=== PATIENT | male | born 1965 | race Caucasian/White ===

== ENCOUNTER 2016-06-02 09:50 | Emergency (ER) | payer BC, MEDICAID ==
[~2016-06-02] VITALS: Ht 172.7 cm; Wt 77.1 kg
[~2016-06-02 09:50] MED LIST: ATEN25TA PO; OMEP20CA10 PO
[2016-06-02 09:53] VITALS: BP 138/64
[2016-06-02] MEDS ORDERED: IBUPROFEN 600 MG TABLET PO ONE ×2 (10:09→10:30)
[2016-06-02] MEDS ORDERED: LIDOCAINE HCL/PF 1% 30 ML VIAL TP ONE (10:30)
== END 2016-06-02 11:09 | disposition home or self-care (01) ==
LOC: ER 09:52
DX: L02.512 Cutaneous abscess of left hand (principal); I10 Essential (primary) hypertension; B19.20 Unspecified viral hepatitis C without hepatic coma; F17.200 Nicotine dependence, unspecified, uncomplicated
CPT/HCPCS: 10060; 99283; A4606; A6402; A6403; J3490 ×2; Z7610

== ENCOUNTER 2016-07-24 04:02 | Emergency (ER) | payer MEDICAID ==
[~2016-07-24] VITALS: Ht 172.7 cm; Wt 77.1 kg
--- NOTE | 2016-07-24 04:20 | NUR ---
To bed 7 a 51 yo male bibself with c/o neck pain (throbbing, sharp) radiating to back of head at 7/10 since 2100 yesterday. Patient is aaox4, ambulatory. 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 Denies n/v. Able to move neck all rom. VSS. Initiated comfort measures. Awaiting for er md emerson.
[2016-07-24] MEDS ORDERED: CARISOPRODOL 350 MG TABLET ONE (04:45)
[2016-07-24] MEDS ORDERED: DEXAMETHASONE SOD PHOSPHATE 10 MG/ML VIAL ONE ×2 (04:46→05:01)
[2016-07-24] MEDS ORDERED: HYDROMORPHONE 1 MG/1 ML DISP.SYRIN ONE (04:47)
[2016-07-24] MEDS ORDERED: CARISOPRODOL 350 MG TABLET PO ONE (05:00)
[2016-07-24] MEDS ORDERED: DEXAMETHASONE SOD PHOSPHATE 4 MG/ML VIAL IM ONE (05:00)
[2016-07-24] MEDS ORDERED: HYDROMORPHONE 1 MG/1 ML DISP.SYRIN IM ONE (05:00)
--- NOTE | 2016-07-24 05:12 | NUR ---
Patient refused soma po and dilaudid IV as he will be driving home and nobody is able to come and pick him up.
--- NOTE | 2016-07-24 05:18 | NUR ---
Patient discharged to home in stable condition. Written and verbal after care instructions given. Patient verbalizes understanding of instruction. Patient is ambulatory with steady gait. No further complaints.
[2016-07-24 05:20] VITALS: BP 148/89
== END 2016-07-24 05:18 | disposition home or self-care (01) ==
LOC: ER 04:02
DX: M54.12 Radiculopathy, cervical region (principal); M62.838 Other muscle spasm; I10 Essential (primary) hypertension; B19.20 Unspecified viral hepatitis C without hepatic coma; F17.200 Nicotine dependence, unspecified, uncomplicated
CPT/HCPCS: 96372; 99283; A4606; J1100 ×2; J1170; Z7610

== ENCOUNTER 2016-10-02 16:10 | Emergency (ER) | payer MEDICAID ==
[~2016-10-02] VITALS: Ht 175.3 cm; Wt 77.1 kg
--- NOTE | 2016-10-02 16:19 | NUR ---
HEADACHE X 2 DAYS, WORSENING TODAY AWAITING MD ORDER
[2016-10-02] MEDS ORDERED: MECLIZINE HCL 25 MG TABLET ONE (16:52)
[2016-10-02] MEDS ORDERED: HYDROCODONE/APAP 10/325MG 1 EA TABLET ONE (16:53)
[2016-10-02] MEDS ORDERED: ONDANSETRON 4 MG TAB.RAPDIS ONE (16:53)
[2016-10-02] MEDS: HYDROCODONE/APAP 10/325MG 1 EA TABLET PO ONE ×2 (16:57→17:07)
[2016-10-02] MEDS ORDERED: MECLIZINE HCL 25 MG TABLET PO ONE (17:00)
[2016-10-02] MEDS ORDERED: ONDANSETRON 4 MG TAB.RAPDIS SL ONE (17:00)
--- NOTE | 2016-10-02 17:07 | NUR ---
PT REFUSED [facility]CO DR AGUSTIN AWARE PER PT HEADACHE BETTER
--- NOTE | 2016-10-02 18:18 | NUR ---
Patient discharged to home in stable condition. Written and verbal after care instructions given. Patient verbalizes understanding of instruction.
[2016-10-02 18:19] VITALS: BP 130/83
== END 2016-10-02 18:19 | disposition home or self-care (01) ==
LOC: ER 16:12
DX: R51 Headache (principal); R42 Dizziness and giddiness; I10 Essential (primary) hypertension; B19.20 Unspecified viral hepatitis C without hepatic coma; K29.70 Gastritis, unspecified, without bleeding; F17.200 Nicotine dependence, unspecified, uncomplicated
CPT/HCPCS: 70450-TC; A4606; J8597; Q0162; Z7610

== ENCOUNTER 2017-03-05 19:21 | Emergency (ER) | payer MEDICAID ==
[~2017-03-05] VITALS: Ht 172.7 cm; Wt 77.1 kg
--- NOTE | 2017-03-05 19:30 | NUR ---
TO BED 1 AMBULATORY C/O WORSENING RLQ ABDOMINAL PAIN WITH NAUSEA X1 WEEK. PT AAOX4 NO ACUTE DISTRESS NOTED, RESP EVEN AND UNLABORED. URINE SAMPLE COLLECTED. PENDING ER MD STOREY.
--- NOTE | 2017-03-05 19:40 | NUR ---
EDMOND SWEET AT BEDSIDE TO RALEIGH JERNIGAN.
[2017-03-05 19:51] LABS: APPEARANCE,URINE Clear (CLEAR); BILIRUBIN,URINE Negative (NEGATIVE); BLOOD, URINE Trace-intact Ery/uL (NEGATIVE); COLOR,URINE Yellow (YELLOW); KETONES,URINE Negative (NEGATIVE); LEUKOCYTE ESTERASE ,URINE Negative (NEGATIVE); NITRITE, URINE Negative (NEGATIVE); PH,URINE 5.5 (5.0-8.0); PROTEIN,URINE Negative (NEGATIVE); UGLUCOSE Negative (NEGATIVE); UROBILINOGEN,URINE 0.2 EU/dL (0.2)
[2017-03-05 19:59] LABS: BACTERIA,URINE Rare /HPF (None Seen); RBC,URINE 2-3/HPF /HPF (0-2); SQUAMOUS EPITHELIAL CELL,UR Rare /HPF (None Seen); WBC,URINE 1-2/HPF /HPF (0-3)
[2017-03-05 20:00] LABS: MUCUS,URINE Few /LPF (None Seen); URINE AMORPHOUS URATE Few /HPF (None Seen)
[2017-03-05] MEDS ORDERED: ONDANSETRON HCL/PF 4 MG/2 ML VIAL ONE (20:00)
[2017-03-05] MEDS ORDERED: IV NS 0.9% 1,000 ML BAG IV ONE (20:00)
[2017-03-05] MEDS ORDERED: ONDANSETRON HCL/PF 4 MG/2 ML VIAL IVP ONE (20:00)
[2017-03-05 20:03] LABS: BASOPHILS # (AUTO) 0.1 /CMM (0.0-0.2); BASOPHILS % (AUTO) 0.6 % (0.0-2.0); EOSINOPHILS # (AUTO) 0.1 /CMM (0.0-0.7); EOSINOPHILS % (AUTO) 1.6 % (0.0-6.0); HEMATOCRIT 47 % (39-51); HEMOGLOBIN 15.7 g/dL (13.5-17.5); LYMPHOCYTES # (AUTO) 2.9 /CMM (0.8-4.8); LYMPHOCYTES % (AUTO) 31.8 % (20.0-44.0); MEAN CORPUSCULAR HEMOGLOBIN 30 PG (26.0-33.0); MEAN CORPUSCULAR HGB CONC 34 g/dl (31.0-36.0); MEAN CORPUSCULAR VOLUME 88 fL (80-96); MONOCYTES # (AUTO) 0.6 /CMM (0.1-1.30); MONOCYTES % (AUTO) 6.2 % (2.0-12.0); NEUTROPHILS # (AUTO) 5.3 /CMM (1.8-8.9); NEUTROPHILS % (AUTO) 59.8 % (43.0-81.0); PLATELET COUNT (AUTO) 258 /CMM (150-450); RDW COEFFICIENT OF VARIATION 12.5 (11.5-15.0)
[2017-03-05 20:12] LABS: CALCIUM, SERUM 9.7 mg/dL (8.5-10.1); POTASSIUM 4.1 mmol/L (3.5-5.1)
[2017-03-05 20:17] LABS: INR 0.95 (0.87-1.13); PROTHROMBIN TIME 9.9 SECS (9.5-12.7)
[2017-03-05 20:18] LABS: ALBUMIN 4.5 g/dL (3.4-5.0); BILIRUBIN,DIRECT 0.1 mg/dL (0.0-0.2); BILIRUBIN,TOTAL 0.8 mg/dL (0.2-1.0); TOTAL PROTEIN, SERUM 8.2 g/dL (6.4-8.2)
--- NOTE | 2017-03-05 21:44 | NUR ---
IV removed. Catheter intact and site benign. Pressure and 4x4 applied to site. No bleeding noted. Patient discharged to home in stable condition. Written and verbal after care instructions given. Patient verbalizes understanding of instruction. ambulatory with a steady gait
[2017-03-05 21:45] VITALS: BP 153/79
== END 2017-03-05 21:47 | disposition home or self-care (01) ==
LOC: ER 19:22
DX: K57.32 Diverticulitis of large intestine without perforation or abscess without bleeding (principal); I10 Essential (primary) hypertension; F17.200 Nicotine dependence, unspecified, uncomplicated; Z86.19 Personal history of other infectious and parasitic diseases
CPT/HCPCS: 36415; 74176; 80048; 80076; 81001; 83690; 85025; 85730; 96361; 96374; 99285; 99406; A4606; J2405; J7030; Z7610; 81000-TC

== ENCOUNTER 2017-07-27 11:14 | Emergency (ER) | payer MEDICAID ==
[~2017-07-27] VITALS: Ht 172.7 cm; Wt 77.6 kg
--- NOTE | 2017-07-27 11:20 | NUR ---
PATIENT TO ED DT DIFFICULTY BREATHING AT NIGHT WHEN LAYING DOWN, PATIENT IN NO DISTRESS. RESPIRAITON EVEN AND UNLABORED. SKIN IS WARM TO TOUCH AND NON DIAPHORETIC. PT IS AFEBRILE. VSS.
[2017-07-27] MEDS ORDERED: ALPR0.25 PO (11:34)
[2017-07-27 11:40] LABS: BASOPHILS # (AUTO) 0.1 /CMM (0.0-0.2); BASOPHILS % (AUTO) 0.9 % (0.0-2.0); EOSINOPHILS % (AUTO) 1.7 % (0.0-6.0); HEMATOCRIT 48 % (39-51); HEMOGLOBIN 16.3 g/dL (13.5-17.5); LYMPHOCYTES # (AUTO) 2.3 /CMM (0.8-4.8); LYMPHOCYTES % (AUTO) 31.8 % (20.0-44.0); MEAN CORPUSCULAR HGB CONC 34 g/dl (31.0-36.0); MEAN CORPUSCULAR VOLUME 87 fL (80-96); MONOCYTES # (AUTO) 0.4 /CMM (0.1-1.30); MONOCYTES % (AUTO) 5.8 % (2.0-12.0); NEUTROPHILS # (AUTO) 4.2 /CMM (1.8-8.9); NEUTROPHILS % (AUTO) 59.8 % (43.0-81.0); PLATELET COUNT (AUTO) 273 /CMM (150-450); RDW COEFFICIENT OF VARIATION 12.7 (11.5-15.0); RED BLOOD CELL COUNT(AUTO) 5.52 MIL/uL (4.5-6.0); WHITE BLOOD COUNT (AUTO) 7.1 K/uL (4.3-11.0)
[2017-07-27 11:51] LABS: CALCIUM, SERUM 9.1 mg/dL (8.5-10.1); CARBON DIOXIDE 31 mmol/L (21-32); CHLORIDE 102 mmol/L (98-107); CREATININE 1.1 mg/dL (0.6-1.3); GLUCOSE 138 mg/dL (74-106); SODIUM SERUM 139 mmol/L (136-145); UREA NITROGEN, BLOOD 15 mg/dL (7-18)
[2017-07-27 11:55] LABS: INR 0.93 (0.85-1.15)
[2017-07-27 11:58] LABS: TROPONIN I < 0.017 ng/mL (0.00-0.056)
[2017-07-27 12:03] LABS: B-TYPE NATRIURETIC PEPTIDE 22 PG/ML (0-125)
[2017-07-27 12:34] VITALS: BP 134/80
--- NOTE | 2017-07-27 12:35 | NUR ---
Patient discharged to home in stable condition. Written and verbal after care instructions given. Patient verbalizes understanding of instruction.
== END 2017-07-27 12:36 | disposition home or self-care (01) ==
LOC: ER 11:16
DX: R00.2 Palpitations (principal); F41.9 Anxiety disorder, unspecified; I10 Essential (primary) hypertension; R06.02 Shortness of breath; F17.200 Nicotine dependence, unspecified, uncomplicated; Z86.19 Personal history of other infectious and parasitic diseases
CPT/HCPCS: 36415; 71045-TC; 80048-TC; 83880; 84484-TC; 85025-TC; 85730-TC; A4606; Z7610

== ENCOUNTER 2017-09-14 09:03 | Emergency (ER) | payer MEDICAID ==
[~2017-09-14] VITALS: Ht 172.7 cm; Wt 77.1 kg
[~2017-09-14 09:03] MED LIST changes: +ALPR0.25 PO
[2017-09-14 09:05] VITALS: BP 141/89
== END 2017-09-14 09:59 | disposition home or self-care (01) ==
LOC: ER 09:05
DX: J03.90 Acute tonsillitis, unspecified (principal); I10 Essential (primary) hypertension; F17.200 Nicotine dependence, unspecified, uncomplicated; Z86.19 Personal history of other infectious and parasitic diseases
CPT/HCPCS: 99283; A4606; Z7610

== ENCOUNTER → 2017-11-21 | Emergency (ER) | payer MEDICAID ==
[~2017-11-21] VITALS: Ht 172.7 cm; Wt 74.8 kg
[~2017-11-21] MED LIST changes: +IV NS 0.9% 1,000 ML BAG IV ONE; +KETOROLAC TROMETHAMINE INJ 30 MG/ML VIAL IV ONE; +KETOROLAC TROMETHAMINE INJ 30 MG/ML VIAL ONE; +METOCLOPRAMIDE HCL 10 MG/2 ML VIAL IV ONE; +METOCLOPRAMIDE HCL 10 MG/2 ML VIAL ONE; +diphenhydrAMINE HCL 50 MG/ML VIAL IV ONE; +diphenhydrAMINE HCL 50 MG/ML VIAL ONE
--- NOTE | 2017-11-21 19:45 | NUR ---
TO BED 12 AMBULATORY C/O HEADACHE X 3 DAYS, WORSE TODAY, PT TOOK IBUPROFEN WITHOUT RELIEF. PT AAOX4 NO ACUTE DISTRESS NOTED, RESP EVEN AND UNLABORED. PENDING ER MD STOREY.
--- NOTE | 2017-11-21 20:25 | NUR ---
ER MD AT BEDSIDE TO EVAL PT WITH ORDERS RECEIVED. WILL CARRY OUT ORDERS.
--- NOTE | 2017-11-21 21:10 | NUR ---
RN AT BEDSIDE TO MEDICATE PT.
[2017-11-21 21:16] LABS: BASOPHILS # (AUTO) 0.1 /CMM (0.0-0.2); BASOPHILS % (AUTO) 0.8 % (0.0-2.0); HEMATOCRIT 47 % (39-51); HEMOGLOBIN 15.6 g/dL (13.5-17.5); LYMPHOCYTES # (AUTO) 2.3 /CMM (0.8-4.8); MEAN CORPUSCULAR HEMOGLOBIN 29 PG (26.0-33.0); MEAN CORPUSCULAR HGB CONC 33 g/dl (31.0-36.0); MEAN CORPUSCULAR VOLUME 89 fL (80-96); MONOCYTES # (AUTO) 0.4 /CMM (0.1-1.30); MONOCYTES % (AUTO) 5.1 % (2.0-12.0); NEUTROPHILS # (AUTO) 4.4 /CMM (1.8-8.9); NEUTROPHILS % (AUTO) 61.1 % (43.0-81.0); PLATELET COUNT (AUTO) 231 /CMM (150-450); RDW COEFFICIENT OF VARIATION 12.8 (11.5-15.0); RED BLOOD CELL COUNT(AUTO) 5.31 MIL/uL (4.5-6.0); WHITE BLOOD COUNT (AUTO) 7.3 K/uL (4.3-11.0)
[2017-11-21 21:24] LABS: CALCIUM, SERUM 9.5 mg/dL (8.5-10.1)
--- NOTE | 2017-11-21 21:32 | NUR ---
PT TRANSPORTED TO RADIOLOGY FOR CT HEAD.
--- NOTE | 2017-11-21 21:44 | NUR ---
PT BACK FROM RADIOLOGY. PENDING CT HEAD RESULT.
[2017-11-21 22:48] VITALS: BP 163/90
--- NOTE | 2017-11-21 22:48 | NUR ---
IV removed. Catheter intact and site benign. Pressure and 4x4 applied to site. No bleeding noted. Patient discharged to home in stable condition. Written and verbal after care instructions given. Patient verbalizes understanding of instruction. Viacheslav ambulatory with a steady gait. Pt aaox4. Respirations even and unlabored. Pt verbalized understanding of dc instructions.
== END | disposition home or self-care (01) ==
LOC: ER 19:04
DX: R51 Headache (principal); I10 Essential (primary) hypertension; F17.200 Nicotine dependence, unspecified, uncomplicated; Z86.19 Personal history of other infectious and parasitic diseases; Z79.899 Other long term (current) drug therapy; Z87.19 Personal history of other diseases of the digestive system
CPT/HCPCS: 36415; 70450-TC; 80048-TC; 85025-TC; A4606; J1200; J1885; J2765; J7030; Z7610

== ENCOUNTER 2019-04-04 18:46 | Emergency (ER) | payer MEDICAID ==
[~2019-04-04] VITALS: Ht 167.6 cm; Wt 77.1 kg
[~2019-04-04 18:46] MED LIST changes: -IV NS 0.9% 1,000 ML BAG IV ONE; -KETOROLAC TROMETHAMINE INJ 30 MG/ML VIAL IV ONE; -KETOROLAC TROMETHAMINE INJ 30 MG/ML VIAL ONE; -METOCLOPRAMIDE HCL 10 MG/2 ML VIAL IV ONE; -METOCLOPRAMIDE HCL 10 MG/2 ML VIAL ONE; +OMEP-293 PO; -OMEP20CA10 PO; -diphenhydrAMINE HCL 50 MG/ML VIAL IV ONE; -diphenhydrAMINE HCL 50 MG/ML VIAL ONE
[2019-04-04 18:54] VITALS: BP 132/83
== END 2019-04-04 19:57 | disposition home or self-care (01) ==
LOC: ER 18:47
DX: H61.23 Impacted cerumen, bilateral (principal); I10 Essential (primary) hypertension; F17.200 Nicotine dependence, unspecified, uncomplicated; Z86.19 Personal history of other infectious and parasitic diseases; Z79.899 Other long term (current) drug therapy

== ENCOUNTER 2021-02-15 10:34 | Emergency (ER) | payer MEDICAID ==
[~2021-02-15] VITALS: Ht 170.2 cm; Wt 74.8 kg
[~2021-02-15 10:34] MED LIST changes: -OMEP-293 PO; +OMEP20CA15 PO
--- NOTE | 2021-02-15 10:46 | NUR ---
PT CAME TO ER C/O WORSENING RLQ ABDOMINAL PAIN RADIATING TO R LOWER BACK X 1 WEEK. WORSE W/ MOVEMENT AND LIFTING, RELIEVED BY REST. PAIN RATED 7/10 UPON EXERTION, NO PAIN AT REST. PAIN IS NOT AFFECTED BY EATING. DENIES HX OF KIDNEY STONE OR HERNIA. DENIES N/V, FEVER, CHILLS. AAOX4, AMBULATORY, BREATHIGN EVEN AND UNLABORED, PULSES 2+ BILATERALLY, SKIN WARM AND DRY, ABDOMEN NONTENDER TO TOUCH, -COSTOVERTEBRAL ANGLE TENDERNESS. ON MONITOR. VS STABLE
--- NOTE | 2021-02-15 11:00 | NUR ---
BLOOD SAMPLE OBTAINED AND SENT TO LAB
[2021-02-15 11:24] LABS: BASOPHILS % (AUTO) 0.8 % (0.0-2.0); EOSINOPHILS % (AUTO) 1.8 % (0.0-6.0); HEMATOCRIT 49 % (39-51); HEMOGLOBIN 16.2 g/dL (13.5-17.5); LYMPHOCYTES # (AUTO) 1.9 K/uL (0.8-4.8); LYMPHOCYTES % (AUTO) 30.9 % (20.0-44.0); MEAN CORPUSCULAR HGB CONC 33 g/dl (31.0-36.0); MEAN CORPUSCULAR VOLUME 94 fL (80-96); MONOCYTES # (AUTO) 0.5 K/uL (0.1-1.30); MONOCYTES % (AUTO) 8.8 % (2.0-12.0); NEUTROPHILS # (AUTO) 3.6 K/uL (1.8-8.9); NEUTROPHILS % (AUTO) 57.7 % (43.0-81.0); PLATELET COUNT (AUTO) 239 K/uL (150-450); RED BLOOD CELL COUNT(AUTO) 5.18 MIL/uL (4.5-6.0); WHITE BLOOD COUNT (AUTO) 6.2 K/uL (4.3-11.0)
[2021-02-15] MEDS ORDERED: IV NS 0.9% 500 ML BAG IV ONE (11:30)
[2021-02-15 11:49] LABS: ALBUMIN 4.2 g/dL (3.4-5.0); BILIRUBIN,DIRECT 0.1 mg/dL (0.0-0.2); BILIRUBIN,TOTAL 0.8 mg/dL (0.2-1.0); CALCIUM, SERUM 9.2 mg/dL (8.5-10.1); POTASSIUM 4.2 mmol/L (3.5-5.1)
[2021-02-15] MEDS ORDERED: CIPR500T5 PO (12:46)
[2021-02-15] MEDS ORDERED: METR500T PO (12:46)
--- NOTE | 2021-02-15 13:02 | NUR ---
IV removed. Catheter intact and site benign. Pressure and 4x4 applied to site. No bleeding noted.Patient discharged to home in stable condition. Written and verbal after care instructions given. Patient verbalizes understanding of instruction.
[2021-02-15 13:04] VITALS: BP 145/92
== END 2021-02-15 13:05 | disposition home or self-care (01) ==
LOC: ER 10:35
DX: K52.9 Noninfective gastroenteritis and colitis, unspecified (principal); R10.31 Right lower quadrant pain; I10 Essential (primary) hypertension; Z98.890 Other specified postprocedural states; Z79.899 Other long term (current) drug therapy
CPT/HCPCS: 36415; 74176; 80048; 80076; 83690; 85025; 99284; J7040

== ENCOUNTER 2021-12-15 07:58 | Inpatient (IN) | payer MEDICAID, OTHER ==
[~2021-12-15] VITALS: Ht 177.8 cm; Wt 81.6 kg
[~2021-12-15 07:58] MED LIST changes: +CIPR500T5 PO; +METR500T PO
--- NOTE | 2021-12-15 08:05 | NUR ---
BIBS C/O LLQ ABDOMINAL PAIN X 2 DAYS. +NAUSEA. PAIN IS 8/10 ON PAIN SCALE. PT ATTACHED TO MONITOR, NO RESP DISTRESS NOTED. WARM BLANKET PROVIDED FOR COMFORT. AWAITING MD ORDERS.
--- NOTE | 2021-12-15 08:13 | NUR ---
DR ANTUNEZ AT BEDSIDE FOR EVAL
[2021-12-15] MEDS ORDERED: MORPHINE SULFATE INJ 4 MG/ML DISP.SYRIN ONE ×2 (08:19→12:57)
[2021-12-15] MEDS ORDERED: ONDANSETRON HCL/PF 4 MG/2 ML VIAL ONE ×2 (08:19→12:57)
[2021-12-15] MEDS ORDERED: IV NS 0.9% 1,000 ML BAG IV ONE (08:30)
[2021-12-15] MEDS ORDERED: ONDANSETRON HCL/PF 4 MG/2 ML VIAL IVP ONE (08:30)
[2021-12-15] MEDS ORDERED: MORPHINE SULFATE INJ 2 MG/ML DISP.SYRIN IV ONE (08:30)
--- NOTE | 2021-12-15 08:32 | NUR ---
URINE SAMPLE COLLECTED AND SENT TO LAB
[2021-12-15 08:37] LABS: BASOPHILS % (AUTO) 0.4 % (0.0-2.0); EOSINOPHILS % (AUTO) 1.4 % (0.0-6.0); HEMATOCRIT 47 % (39-51); LYMPHOCYTES # (AUTO) 1.5 K/uL (0.8-4.8); LYMPHOCYTES % (AUTO) 14.7 % (20.0-44.0); MEAN CORPUSCULAR HGB CONC 34 g/dl (31.0-36.0); MEAN CORPUSCULAR VOLUME 92 fL (80-96); MONOCYTES # (AUTO) 0.6 K/uL (0.1-1.30); MONOCYTES % (AUTO) 5.6 % (2.0-12.0); NEUTROPHILS # (AUTO) 7.7 K/uL (1.8-8.9); NEUTROPHILS % (AUTO) 77.9 % (43.0-81.0); PLATELET COUNT (AUTO) 217 K/uL (150-450); WHITE BLOOD COUNT (AUTO) 9.9 K/uL (4.3-11.0)
--- NOTE | 2021-12-15 08:41 | NUR ---
IV LINE ESTABLISHED ON LAC #20, BLOOD DRAWN AND SENT TO LAB
[2021-12-15 08:44] LABS: BILIRUBIN,URINE NEGATIVE (NEGATIVE); COLOR,URINE YELLOW (YELLOW); LEUKOCYTE ESTERASE ,URINE NEGATIVE (NEGATIVE); NITRITE, URINE NEGATIVE (NEGATIVE); PH,URINE 6.5 (5.0-8.0); PROTEIN,URINE NEGATIVE (NEGATIVE); UGLUCOSE NEGATIVE (NEGATIVE)
[2021-12-15 08:50] LABS: CALCIUM, SERUM 9.1 mg/dL (8.5-10.1)
[2021-12-15 08:56] LABS: BILIRUBIN,DIRECT 0.2 mg/dL (0.0-0.2); BILIRUBIN,TOTAL 1.1 mg/dL (0.2-1.0)
[2021-12-15 09:13] LABS: BACTERIA,URINE Few /HPF (None Seen); RBC,URINE 0-2 /HPF (0-2); SQUAMOUS EPITHELIAL CELL,UR Few /HPF (None Seen)
[2021-12-15] MEDS ORDERED: DOCU-141 PO (10:45)
[2021-12-15] MEDS ORDERED: HYDR-3980 PO (10:45)
[2021-12-15] MEDS ORDERED: METR500T PO (10:45)
[2021-12-15] MEDS ORDERED: AMOX-427 PO (10:45)
--- NOTE | 2021-12-15 10:59 | NUR ---
IV DISLODGED, NEW IV ESTABLIHSED L FA 20G.
[2021-12-15] MEDS ORDERED: FLAGYL/NS RTU 500 MG/100 ML PIGGYBACK IV ONE (11:00)
[2021-12-15] MEDS ORDERED: PIPERACILLIN /TAZOBACTAM 3.375 G in IV D5W 50 ML IV ONE (11:00)
[2021-12-15] MEDS ORDERED: TAMS-12 PO (11:10)
--- NOTE | 2021-12-15 11:13 | NUR ---
MOVE SHEET SUBMITTED.
[2021-12-15] MEDS ORDERED: IV 1/2NS 1000 ML 1,000 ML IV PRN (11:30)
[2021-12-15] MEDS ORDERED: MAGNESIUM HYDROXIDE 30 ML UDC PO PRN (11:30)
[2021-12-15] MEDS ORDERED: MAG HYDROX/AL HYDROX/SIMETH 30 ML UDC PO PRN (11:30)
[2021-12-15] MEDS ORDERED: MORPHINE SULFATE INJ 2 MG/ML DISP.SYRIN IV PRN (11:30)
[2021-12-15] MEDS ORDERED: ONDANSETRON HCL/PF 4 MG/2 ML VIAL IVP PRN (11:30)
[2021-12-15] MEDS ORDERED: ACETAMINOPHEN 325 MG TABLET PO PRN (11:30)
[2021-12-15] MEDS ORDERED: Z GUARD REMEDY 4 OZ OINT TP PRN (11:30)
[2021-12-15] MEDS ORDERED: HYDROCODONE/APAP 10/325MG TABLET PO PRN (12:00)
[2021-12-15] MEDS: IV NS 0.9% 1,000 ML IV SCH ×2 (12:11→18:04)
--- NOTE | 2021-12-15 13:12 | NUR ---
GOT BED [id number]
--- NOTE | 2021-12-15 14:07 | NUR ---
REPORT GIVEN TO JORGE FOR SILVERIO
[2021-12-15 15:00] VITALS: BP 133/79
--- NOTE | 2021-12-15 15:30 | NUR ---
ms rn received a new admission from er, 56 year old male, came in w. cc of abdominal pain, dx- diverticulitis, oriented x4,,not in any form of distress, respirations even and unlabored, no distress noted.will monitor patient.
[2021-12-15 16:00] VITALS: BP 120/74
[2021-12-15] MEDS ORDERED: DOCUSATE SODIUM 100 MG CAPSULE PO SCH (17:00)
[2021-12-15] MEDS ORDERED: ZOSYN IVPB 3.375 G in IV D5W 50ml IV SCH (18:00)
--- NOTE | 2021-12-15 18:00 | NUR ---
ms rn due meds given, will monitor patient,all needs attended.
--- NOTE | 2021-12-15 19:45 | NUR ---
RN OPENING NOTE UPON ROUNDING AFTER REPORT, PATIENT WAS SAYING THAT HE'S HAVING A PANIC ATTACK AND THAT HE NEEDS TO WALK, HE ASKED TO BE UNHOOKED FROM THE IV. PATIENT THEN SAYS THAT HE NEEDS TO WALK AT THE STAIRS AND THE HALLWAYS. I INFORMED THE PATIENT THAT HE IS NOT ALLOWED TO WALK BY THE STAIRS SINCE THAT IS AN EXIT AND THAT HE IS NOT ALLOWED TO LEAVE THE UNIT JUST TO WALK. ASKED THE PATIENT IF HE NEEDS ANYTHING TO MANAGE HIS PANIC ATTACK. HE SAYS "NO I DON'T WANT ANYTHING, I JUST NEED TO WALK". I INFORMED THE PATIENT CALMLY THAT YES HE CAN WALK BUT ONLY AROUND THE UNIT/HALLWAYS. HE SAYS, YELLING, "YOU CAN'T TELL ME WHAT TO DO, WHO SAYS I CAN'T WALK AT THE STAIRS, GET THE CHARGE NURSE". AT THIS POINT PATIENT DOES NOT WANT TO LISTEN. INFORMED MY CHARGE NURSE ABOUT THE SITUATION, CURRENTLY GETTING REPORT FROM DAY SHIFT AREA COORDINATOR, UNABLE TO TALK WITH THE PATIENT. EXPLAINED TO THE PATIENT THAT THE CHARGE NURSE IS IN A MEETING AT THIS TIME SO SHE IS UNABLE TO TALK WITH HIM HE SAYS ANGRILY "MEETING AT 8 PM THAT'S A LIE, TAKE THIS THING OFF AND I WILL GO HOME". ASKED PATIENT ONE LAST TIME TO COMPROMISE TO JUST WALK IN THE HALLWAY, AND HE SAYS "THAT'S NOT A COMPROMISE" AND STATING THIS RN IS MAKING HIM GO HOME. BROUGHT PATIENT AMA FORM TO SIGN AND REMOVED IV. INFORMED MD AND CHARGE NURSE.
--- NOTE | 2021-12-15 19:50 | NUR ---
PATIENT LEFT THE UNIT WITH ALL OF HIS BELONGINGS, IV ACCESS REMOVED.
[2021-12-15] MEDS ORDERED: TAMSULOSIN 0.4 MG CAP.SR.24H PO SCH (22:00)
[2021-12-15] MEDS ORDERED: ALPRAZOLAM 0.25 MG TABLET PO SCH (22:00)
[2021-12-16] MEDS ORDERED: PANTOPRAZOLE 40 MG TABLET.DR PO SCH (09:00)
[2021-12-16] MEDS ORDERED: ATENOLOL 25 MG TABLET PO SCH (09:00)
== END 2021-12-15 20:00 | disposition left against medical advice (07) | DRG 244 ==
LOC: ER 08:03 → TRANSITION 11:55 → MED 13:18
PROVIDERS: ADMIT Internal Medicine; ATTEND Internal Medicine
DX: K57.32 Diverticulitis of large intestine without perforation or abscess without bleeding (principal); N17.0 Acute kidney failure with tubular necrosis; I10 Essential (primary) hypertension; Z79.899 Other long term (current) drug therapy; E87.1 Hypo-osmolality and hyponatremia; Z53.29 Procedure and treatment not carried out because of patient's decision for other reasons; B19.20 Unspecified viral hepatitis C without hepatic coma
CPT/HCPCS: 36415; 80048-TC; 80076-TC; 81001; 83690-TC; 85025-TC; 87081-TC; G0378; J2270; J2405; J2543; J7030; J7060

== ENCOUNTER 2024-11-05 07:31 | Emergency (ER) | payer MEDICAID, OTHER ==
[~2024-11-05] VITALS: Ht 175.3 cm; Wt 79.4 kg
[~2024-11-05 07:31] MED LIST changes: +AMOX-427 PO; -CIPR500T5 PO; +DOCU-141 PO; +HYDR-3980 PO; +TAMS-12 PO
[2024-11-05 07:45] VITALS: TEMP 97.7
[2024-11-05 08:22] LABS: PLATELET COUNT (AUTO) 230 K/uL (150-450); RED BLOOD CELL COUNT(AUTO) 4.97 MIL/uL (4.5-6.0); RED CELL DISTRIBUTION WIDTH 13.8 % (11.5-15.0); WHITE BLOOD COUNT (AUTO) 10.2 K/uL (4.3-11.0)
[2024-11-05] MEDS ORDERED: MORPHINE SULFATE INJ 4 MG/ML DISP.SYRIN ONE (08:25)
[2024-11-05] MEDS ORDERED: ONDANSETRON HCL/PF 4 MG/2 ML VIAL ONE (08:25)
[2024-11-05] MEDS ORDERED: KETOROLAC TROMETHAMINE 15 MG/ML VIAL ONE (08:25)
[2024-11-05] MEDS: IV NS 0.9% 1,000 ML BAG IV ONE (08:40)
[2024-11-05 08:42] LABS: CALCIUM, SERUM 9.6 mg/dL (8.5-10.1); CREATININE 1.2 mg/dL (0.6-1.3); SODIUM SERUM 135.0 mmol/L (136-145); UREA NITROGEN, BLOOD 23.0 mg/dL (7-18)
[2024-11-05] MEDS: ONDANSETRON HCL/PF 4 MG/2 ML VIAL IVP ONE (08:43)
[2024-11-05] MEDS: KETOROLAC TROMETHAMINE 15 MG/ML VIAL IV ONE (08:44)
[2024-11-05] MEDS: MORPHINE SULFATE INJ 2 MG/ML DISP.SYRIN IV ONE (08:45)
[2024-11-05] MEDS ORDERED: IOHEXOL-300 100 ML VIAL IV ONE (08:52)
[2024-11-05] MEDS ORDERED: IV NS 0.9% 250 ML IV ONE (08:52)
[2024-11-05] MEDS ORDERED: CT SWABBABLE VALVE TRANS SET 1 EA INFUS.SET MC ONE (08:52)
[2024-11-05 08:57] LABS: ASPARTATE AMINOTRANSFERASE 21.0 U/L (15-37); TOTAL PROTEIN, SERUM 7.6 g/dL (6.4-8.2)
[2024-11-05 10:32] LABS: APPEARANCE,URINE CLEAR (CLEAR); BLOOD, URINE NEGATIVE Ery/uL (NEGATIVE); LEUKOCYTE ESTERASE ,URINE NEGATIVE (NEGATIVE); NITRITE, URINE NEGATIVE (NEGATIVE); UGLUCOSE NEGATIVE (NEGATIVE)
[2024-11-05 10:49] LABS: ADD URINE CULTURE NO; SQUAMOUS EPITHELIAL CELL,UR 0-2 /HPF (None Seen)
[2024-11-05] MEDS ORDERED: HYDR-4303 PO (10:59)
[2024-11-05] MEDS ORDERED: AMOX-430 PO (10:59)
[2024-11-05 12:00] VITALS: BP 132/87; O2SAT 97
== END 2024-11-05 12:00 | disposition home or self-care (01) ==
LOC: ER 07:37
DX: K57.32 Diverticulitis of large intestine without perforation or abscess without bleeding (principal); I10 Essential (primary) hypertension; F17.200 Nicotine dependence, unspecified, uncomplicated; Z79.899 Other long term (current) drug therapy; Z87.19 Personal history of other diseases of the digestive system
CPT/HCPCS: 99285; 74177; 96374; 96375; 96361; 93005; 85025; 80048; 83690; 80076; 81001; 36415; J1885; J2270; J2405; J7030; J7050; Q9967